=== PATIENT | male | born 1990 | race Asian ===

== ENCOUNTER 2022-10-10 03:51 | Emergency (ER) | payer SELFPAY ==
[~2022-10-10] VITALS: Ht 165.1 cm; Wt 68.0 kg
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
[2022-10-10] MEDS ORDERED: HYDROCODONE/APAP 5/325MG TABLET ONE ×2 (04:58→05:08)
[2022-10-10] MEDS: HYDROCODONE/APAP 5/325MG TABLET PO ONE ×2 (05:02→05:11)
[2022-10-10] MEDS ORDERED: ONDANSETRON 4 MG TAB.RAPDIS ONE (05:08)
--- NOTE | 2022-10-10 05:12 | NUR ---
EMT AT BEDSIDE FOR SPLINT APPLICATION
[2022-10-10] MEDS ORDERED: HYDR-3972 PO (05:16)
[2022-10-10] MEDS ORDERED: ONDANSETRON 4 MG TAB.RAPDIS PO ONE (05:30)
--- NOTE | 2022-10-10 05:49 | NUR ---
Patient discharged to home in stable condition. Written and verbal after care instructions given. Patient verbalizes understanding of instruction.
[2022-10-10 05:56] VITALS: BP 116/66
== END 2022-10-10 05:56 | disposition home or self-care (01) ==
LOC: ER 04:01
DX: S52.571A Other intraarticular fracture of lower end of right radius, initial encounter for closed fracture (principal); S52.611A Displaced fracture of right ulna styloid process, initial encounter for closed fracture; Z60.2 Problems related to living alone; W19.XXXA Unspecified fall, initial encounter; Y93.01 Activity, walking, marching and hiking; Y92.89 Other specified places as the place of occurrence of the external cause; Y99.8 Other external cause status
CPT/HCPCS: 99283; 29125; 73110; Q0162